=== PATIENT | male | born 1990 | race Caucasian/White ===

== ENCOUNTER 2019-11-28 15:26 | Emergency (ER) | payer BC ==
[~2019-11-28] VITALS: Ht 177.8 cm; Wt 118.2 kg
[2019-11-28] MEDS ORDERED: OMEPRAZOLE40 MG PO (15:31)
[2019-11-28 15:56] LABS: EOS # 0.2 (0.04-0.40); EOS % 2.7 % (0.0-4.0); HEMATOCRIT 46.4 % (42.0-52.0); HEMOGLOBIN 15.8 g/dL (13.5-18.0); LYMPH# 2.6 (1.50-4.00); MEAN CELL VOLUME 85 fl (78-100); MEAN CORPUSCULAR HEMOGLOBIN 29 pg (27-31); MEAN CORPUSCULAR HGB CONC 34 g/dL (33-37); MEAN PLATELET VOLUME 9.8 fl (7.4-10.4); MONO # 0.8 (0.20-0.80); NEU # 4.4 (1.40-6.50); PLATELET COUNT 262 K/mm3 (130-400); RED BLOOD COUNT 5.46 M/mm3 (4.20-5.60); RED CELL DISTRIBUTION WIDTH 12.5 % (11.5-14.5); WHITE BLOOD COUNT 8.1 K/mm3 (4.8-10.8)
[2019-11-28 16:07] LABS: ALBUMIN 4.1 g/dL (3.5-5.0); POTASSIUM 3.9 mmol/L (3.5-5.1); SODIUM 141 mmol/L (136-145)
[2019-11-28 16:08] LABS: CALCIUM 8.5 mg/dL (8.3-10.5)
[2019-11-28 16:09] LABS: GLUCOSE 102 mg/dL (75-110); TOTAL PROTEIN 7.5 g/dL (6.4-8.3)
[2019-11-28 16:10] LABS: CARBON DIOXIDE 24 mmol/L (22-29)
[2019-11-28 16:11] LABS: TOTAL BILIRUBIN 0.6 mg/dL (0.2-1.2)
[2019-11-28 16:15] LABS: AST-SGOT 22 U/L (5-34)
[2019-11-28 16:16] LABS: ALT/SGPT 36 U/L (0-55)
[2019-11-28 16:23] LABS: TROPONIN-I < 0.03 ng/mL (<0.030)
[2019-11-28 17:16] VITALS: BP 142/86
== END 2019-11-28 17:11 | disposition home or self-care (01) ==
LOC: ED 15:26
PROVIDERS: Family Medicine
DX: M94.0 Chondrocostal junction syndrome [Tietze] (principal); K21.9 Gastro-esophageal reflux disease without esophagitis